=== PATIENT | female | born 1965 | race Caucasian/White ===

== ENCOUNTER → 2020-06-28 | Outpatient (CLI) | payer OTHER ==
--- NOTE | 2020-06-28 15:38 | RAD ---
Single view the hand and 2 views of the right third finger without comparison for injury. FINDINGS: There is no fracture, dislocation, or acute osseous abnormality identified. No significant degenerative changes are seen. No radiopaque foreign bodies are evident. IMPRESSION: 1. No acute osseous abnormality. Electronically signed by: Black Sloan MD (06/28/2020 3:35 PM) [id number]
== END ==
LOC: DXRAD 14:33
PROVIDERS: ATTEND Physician Assistant
DX: M79.644 Pain in right finger(s) (principal)
CPT/HCPCS: 73140